=== PATIENT | female | born 1990 | race Hispanic/Latino ===

== ENCOUNTER 2017-07-25 20:30 | Inpatient (IN) | payer OTHER ==
[2017-07-25] MEDS ORDERED: LACTATED RINGERS 1,000 ML IV ONE (22:05)
[2017-07-25 23:45] LABS: Bilirubin,Urine NEG (Negative); Blood,Urine MOD (Negative); Color,Urine Yellow (Yellow); Protein,Urine <15 mg/dL mg/dL (Negative); Urobilinogen,Urine < 2.0 mg/dL (<2.0)
--- NOTE | 2017-07-25 23:49 | History and Physical Report ---
History of Present Illness Date of examination: 07/26/17 Chief complaint: Uterine contractions start 4PM History of present illness: The patient is a 27yo at 29 5/7 weeks that presents in labor. Painful contractions Q3-4min. She denies LOF, VB and reports contractions since 4pm. She states she didn't come in earlier because she was at work. She reports good movement. She reports losing her mucus plug. Past History Past Medical History: no pertinent history, other (heart murmur) Past Surgical History: no surgical history - Obstetrical History Expected Date of Delivery: 10/06/17 Actual Gestation: 29 Week(s) 5 Day(s) : 4 Medications and Allergies Allergies Allergy/AdvReac Type Severity Reaction Status Date / Time No Known Allergies Allergy Verified 04/26/14 15:47 Home Medications Medication Instructions Recorded Confirmed Last Taken Type Pnv,Calcium 72/Iron/Folic Acid 1 tab PO DAILY 11/10/15 11/10/15 11/09/15 14:30 History [Pnv Plus Multivit Tab] 1 - Vital Signs Vital signs: Vital Signs Temp Pulse Resp BP 98.3 F 78 18 116/63 07/25/17 20:57 07/25/17 20:57 07/25/17 20:57 07/25/17 20:57 Temp Pulse Resp BP Pulse Ox 98.3 F 74 18 116/63 99 07/25/17 20:57 07/25/17 21:33 07/25/17 20:57 07/25/17 20:59 07/25/17 21:33 - Physical Exam Abdomen: Positive: normal appearance, soft Genitourinary (Female): Positive: normal external genitalia Extremities: Positive: normal - Obstetrical FHR: auscultation normal Uterine Contraction Monitor Mode: External Cervical Dilatation: 4 Cervical Effacement Percentage: 50 station: -4 Uterine Contraction Pattern: Regular (Vertex - sutures palpated on cervix exam.) Results Abnormal lab results 07/25/17 Range/Units 23:20 Urine WBC (Auto) 8.0 H (0.0-6.0) /HPF All other labs normal. Assessment and Plan - Patient Problems (1) labor in third trimester Current Visit: Yes Status: Acute Qualifiers: Fetus number: single or unspecified fetus Plan to address problem: 1. Tocolysis - Terbutaline 0.25mg IM x 1 2. lung maturity: Betamethasone 12mg IM x 2 doses 3. Start ampicillin for GBS prophylaxis. Collect GBS culture 4. Continuous monitoring 5. Neuroprotection: Magnesium sulfate, 4G load dose then 2G per hour x 12hrs 6. Bedrest 7. US for weight 8. Neonatology consult. 9. Routine labs 10. fibronectin - positive
[2017-07-25] MEDS ORDERED: BRETHINE SUB-Q ONE (23:57)
[2017-07-26] MEDS ORDERED: LACTATED RINGERS 500 ML IV ONE (00:27)
[2017-07-26] MEDS: CELESTONE SOLUSPAN IM SCH (00:35)
[2017-07-26] MEDS: LACTATED RINGERS 1,000 ML IV SCH ×2 (00:43→14:18)
[2017-07-26] MEDS ORDERED: MAGNESIUM SULFATE 4GM/100ML 4 GM/100 ML BAG IV ONE (00:46)
[2017-07-26] MEDS ORDERED: POLYCILLIN/NS 2 GM/100 ML 2 GM/100 ML BAG IV ONE (00:52)
[2017-07-26] MEDS ORDERED: MAGNESIUM SULFATE 40GM/1000ML 40 GM/1,000 ML BAG IV SCH (01:00)
[2017-07-26 01:12] LABS: Basophils % (Auto) 0.3 % (0.0-1.8); Eosinophils % (Auto) 0.1 % (0.0-4.3); Hematocrit 35.3 % (30.3-42.9); Hemoglobin 11.9 gm/dl (10.1-14.3); Lymphocytes # (Auto) 2.5 K/mm3 (1.2-5.4); Lymphocytes % (Auto) 23.2 % (13.4-35.0); Mean Corpuscular HGB Conc 34 % (30-34); Mean Corpuscular Hemoglobin 30 pg (28-32); Mean Corpuscular Volume 90 fl (79-97); Monocytes # (Auto) 0.6 K/mm3 (0.0-0.8); Monocytes % (Auto) 5.2 % (0.0-7.3); Platelet Count 213 K/mm3 (140-440); Red Blood Count 3.91 M/mm3 (3.65-5.03); Red Cell Distribution Width 13.9 % (13.2-15.2)
[2017-07-26 01:22] LABS: Amphetamine Screen,Urine PRESUMPTIVE NEGATIVE; Benzodiazepines Screen,Urine PRESUMPTIVE NEGATIVE; Cocaine Screen,Urine PRESUMPTIVE NEGATIVE; Methadone Screen,Urine PRESUMPTIVE NEGATIVE; Opiate Screen,Urine PRESUMPTIVE NEGATIVE
[2017-07-26 01:36] LABS: Cannabinoid Screen,Urine PRESUMPTIVE POSITIVE
[2017-07-26] MEDS ORDERED: AMBIEN PO ONE (03:37)
[2017-07-26] MEDS: AMPICILLIN/NS 1 GM/50 ML 1 GM/50 ML BAG IV SCH ×2 (06:29→22:58)
[2017-07-26] MEDS ORDERED: ZOFRAN IV PRN (08:21)
--- NOTE | 2017-07-26 10:16 | Progress Note ---
Assessment and Plan - Patient Problems (1) labor in third trimester Onset Date: 07/26/17 Current Visit: Yes Status: Acute Qualifiers: Fetus number: single or unspecified fetus (2) 35 weeks gestation of Onset Date: 07/26/17 Current Visit: Yes Status: Acute Plan to address problem: A: IUP @ 35 weeks - currently stable on IV Magnesium sulfate 2gm/hr, Betamethasone and IV Ampicillin Labor - resolved Limited care +FFN +UDS - THC P: Continue present management Obtain [facility] consultation Subjective - Subjective Date of service: 07/26/17 Principal diagnosis: IUP @ 29 6/7 weeks by dates and 35 weeks by u/s; PTL Interval history: The patient is a 27yo at 29 6/7 weeks that presented in labor with painful contractions Q3-4min - now improved with IV Magnesium sulfate. She has received the first dose of Betamethasone and also on IV Ampicillin. She denies ROM or vaginal bleeding. She reports good movement. Patient reports: movement normal, contractions (improved), no new complaints, no loss of fluid, no vaginal bleeding Objective - Vital Signs Vital Signs: Vital Signs - 12hr 07/26/17 07/26/17 07/26/17 00:34 00:48 00:52 Temperature 97.9 F Pulse Rate 69 86 86 Respiratory 20 Rate Blood Pressure 130/61 Blood Pressure 130/61 [Left] O2 Sat by Pulse 93 Oximetry 07/26/17 07/26/17 07/26/17 01:04 01:05 01:09 Temperature Pulse Rate 89 95 H Respiratory Rate Blood Pressure Blood Pressure [Left] O2 Sat by Pulse 97 83 L 97 Oximetry 07/26/17 07/26/17 07/26/17 01:14 01:19 01:24 Temperature Pulse Rate 91 H 88 94 H Respiratory Rate Blood Pressure Blood Pressure [Left] O2 Sat by Pulse 97 98 97 Oximetry 07/26/17 07/26/17 07/26/17 01:29 01:34 01:39 Temperature Pulse Rate 84 85 87 Respiratory Rate Blood Pressure Blood Pressure [Left] O2 Sat by Pulse 96 98 99 Oximetry 07/26/17 07/26/17 07/26/17 01:44 01:49 01:54 Temperature Pulse Rate 89 92 H 87 Respiratory Rate Blood Pressure Blood Pressure [Left] O2 Sat by Pulse 98 98 97 Oximetry 07/26/17 07/26/17 07/26/17 01:59 02:04 02:09 Temperature Pulse Rate 81 89 94 H Respiratory Rate Blood Pressure Blood Pressure [Left] O2 Sat by Pulse 98 97 97 Oximetry 07/26/17 07/26/17 07/26/17 02:15 02:20 02:25 Temperature Pulse Rate 92 H 87 93 H Respiratory Rate Blood Pressure Blood Pressure [Left] O2 Sat by Pulse 97 97 97 Oximetry 07/26/17 07/26/17 07/26/17 02:30 02:35 02:40 Temperature Pulse Rate 86 91 H 94 H Respiratory Rate Blood Pressure Blood Pressure [Left] O2 Sat by Pulse 97 98 97 Oximetry 07/26/17 07/26/17 07/26/17 02:45 02:50 02:55 Temperature Pulse Rate 90 84 86 Respiratory Rate Blood Pressure Blood Pressure [Left] O2 Sat by Pulse 97 97 97 Oximetry 07/26/17 07/26/17 07/26/17 03:00 03:05 03:09 Temperature Pulse Rate 85 85 89 Respiratory Rate Blood Pressure 108/59 Blood Pressure [Left] O2 Sat by Pulse 97 98 Oximetry 07/26/17 07/26/17 07/26/17 03:10 03:15 03:20 Temperature Pulse Rate 103 H 85 90 Respiratory Rate Blood Pressure Blood Pressure [Left] O2 Sat by Pulse 98 98 98 Oximetry 07/26/17 07/26/17 07/26/17 03:25 03:30 03:32 Temperature Pulse Rate 90 107 H 103 H Respiratory Rate Blood Pressure 141/68 Blood Pressure [Left] O2 Sat by Pulse 98 98 Oximetry 07/26/17 07/26/17 07/26/17 03:35 04:41 04:42 Temperature Pulse Rate 102 H 90 90 Respiratory Rate Blood Pressure 101/55 Blood Pressure [Left] O2 Sat by Pulse 98 97 Oximetry 07/26/17 07/26/17 07/26/17 04:47 04:52 04:56 Temperature Pulse Rate 85 85 84 Respiratory Rate Blood Pressure Blood Pressure [Left] O2 Sat by Pulse 97 97 91 Oximetry 07/26/17 07/26/17 07/26/17 04:57 05:02 05:08 Temperature Pulse Rate 84 73 84 Respiratory Rate Blood Pressure Blood Pressure [Left] O2 Sat by Pulse 97 97 97 Oximetry 07/26/17 07/26/17 07/26/17 05:09 05:13 05:18 Temperature Pulse Rate 84 93 H 78 Respiratory Rate Blood Pressure 96/54 Blood Pressure [Left] O2 Sat by Pulse 98 97 Oximetry 07/26/17 07/26/17 07/26/17 05:23 05:28 05:33 Temperature Pulse Rate 77 76 81 Respiratory Rate Blood Pressure Blood Pressure [Left] O2 Sat by Pulse 97 96 97 Oximetry 07/26/17 07/26/17 07/26/17 05:38 05:43 05:48 Temperature Pulse Rate 79 76 70 Respiratory Rate Blood Pressure Blood Pressure [Left] O2 Sat by Pulse 96 96 97 Oximetry 07/26/17 07/26/17 07/26/17 05:53 05:58 06:03 Temperature Pulse Rate 76 74 78 Respiratory Rate Blood Pressure Blood Pressure [Left] O2 Sat by Pulse 97 96 96 Oximetry 07/26/17 07/26/17 07/26/17 06:08 06:09 06:13 Temperature Pulse Rate 69 85 77 Respiratory Rate Blood Pressure 89/47 Blood Pressure [Left] O2 Sat by Pulse 97 97 Oximetry 07/26/17 07/26/17 07/26/17 06:18 06:23 06:28 Temperature Pulse Rate 75 74 77 Respiratory Rate Blood Pressure Blood Pressure [Left] O2 Sat by Pulse 96 96 96 Oximetry 07/26/17 07/26/17 07/26/17 06:33 06:38 06:43 Temperature Pulse Rate 75 71 78 Respiratory Rate Blood Pressure 106/52 Blood Pressure [Left] O2 Sat by Pulse 96 96 99 Oximetry 07/26/17 07/26/17 07/26/17 06:48 06:53 06:58 Temperature Pulse Rate 82 80 90 Respiratory Rate Blood Pressure Blood Pressure [Left] O2 Sat by Pulse 97 96 95 Oximetry 07/26/17 07/26/17 07/26/17 07:03 07:08 07:09 Temperature 98.0 F Pulse Rate 79 81 81 Respiratory 18 Rate Blood Pressure 121/69 Blood Pressure [Left] O2 Sat by Pulse 96 97 Oximetry 07/26/17 07/26/17 07/26/17 07:13 07:18 07:23 Temperature Pulse Rate 78 82 82 Respiratory Rate Blood Pressure Blood Pressure [Left] O2 Sat by Pulse 97 97 98 Oximetry 06/0407/26/17 07/26/17 07:28 07:33 07:38 Temperature Pulse Rate 91 H 82 81 Respiratory Rate Blood Pressure Blood Pressure [Left] O2 Sat by Pulse 97 97 97 Oximetry 07/26/17 07/26/17 07/26/17 07:43 07:48 07:53 Temperature Pulse Rate 83 89 75 Respiratory Rate Blood Pressure Blood Pressure [Left] O2 Sat by Pulse 97 97 98 Oximetry 07/26/17 07/26/17 07/26/17 07:58 08:03 08:08 Temperature Pulse Rate 80 76 80 Respiratory Rate Blood Pressure Blood Pressure [Left] O2 Sat by Pulse 97 97 97 Oximetry 07/26/17 07/26/17 07/26/17 08:09 08:13 08:18 Temperature Pulse Rate 82 85 78 Respiratory Rate Blood Pressure 107/56 Blood Pressure [Left] O2 Sat by Pulse 97 98 Oximetry 07/26/17 07/26/17 07/26/17 08:23 08:28 08:33 Temperature Pulse Rate 82 85 94 H Respiratory Rate Blood Pressure Blood Pressure [Left] O2 Sat by Pulse 98 97 97 Oximetry 07/26/17 07/26/17 07/26/17 08:38 08:43 08:48 Temperature Pulse Rate 78 85 80 Respiratory Rate Blood Pressure Blood Pressure [Left] O2 Sat by Pulse 98 98 99 Oximetry 07/26/17 07/26/17 07/26/17 08:53 08:58 09:03 Temperature Pulse Rate 85 83 78 Respiratory Rate Blood Pressure Blood Pressure [Left] O2 Sat by Pulse 98 99 97 Oximetry 07/26/17 07/26/17 07/26/17 09:08 09:09 09:13 Temperature Pulse Rate 86 82 76 Respiratory Rate Blood Pressure 121/68 Blood Pressure [Left] O2 Sat by Pulse 97 98 Oximetry 07/26/17 07/26/17 07/26/17 09:18 09:23 09:28 Temperature Pulse Rate 74 72 71 Respiratory Rate Blood Pressure Blood Pressure [Left] O2 Sat by Pulse 98 97 96 Oximetry 07/26/17 07/26/17 07/26/17 09:33 09:38 09:43 Temperature Pulse Rate 69 74 73 Respiratory Rate Blood Pressure Blood Pressure [Left] O2 Sat by Pulse 97 96 96 Oximetry 07/26/17 07/26/17 07/26/17 09:48 09:53 09:58 Temperature Pulse Rate 74 92 H Respiratory Rate Blood Pressure Blood Pressure [Left] O2 Sat by Pulse 97 97 89 Oximetry 07/26/17 07/26/17 07/26/17 09:59 10:03 10:08 Temperature Pulse Rate 51 L 89 77 Respiratory Rate Blood Pressure Blood Pressure [Left] O2 Sat by Pulse 91 98 97 Oximetry 07/26/17 07/26/17 07/26/17 10:09 10:13 10:18 Temperature Pulse Rate 77 77 76 Respiratory Rate Blood Pressure 115/61 Blood Pressure [Left] O2 Sat by Pulse 97 96 Oximetry - Exam Abdomen: Present: normal appearance, soft Uterus: Present: normal FHR: category 1 Uterine Contraction Monitor Mode: External Uterine Contraction Pattern: Irregular Uterine Tone Measurement Phase: Contraction Uterine Contraction Intensity: Mild - Labs Labs: Abnormal Labs 07/25/17 07/26/17 07/26/17 23:20 00:33 08:42 Seg Neutrophils % 71.2 H Magnesium 5.20 H Urine WBC (Auto) 8.0 H Laboratory Results - last 24 hr 07/25/17 07/25/17 07/26/17 21:47 23:20 00:30 WBC RBC Hgb Hct MCV MCH MCHC RDW Plt Count Lymph % (Auto) Emmet % (Auto) Eos % (Auto) Baso % (Auto) Lymph # Emmet # Eos # Baso # Seg Neutrophils % Seg Neutrophils # Magnesium Urine Color Yellow Urine Turbidity Clear Urine pH 6.0 Ur Specific Lawler 1.005 Urine Protein <15 mg/dl Urine Glucose (UA) Neg Urine Ketones 20 Urine Blood Mod Urine Nitrite Neg Urine Bilirubin Neg Urine Urobilinogen < 2.0 Ur Leukocyte Esterase Sm Urine WBC (Auto) 8.0 H Urine RBC (Auto) 2.0 U Epithel Cells (Auto) 1.0 Urine Opiates Screen Presumptive negative Urine Methadone Screen Presumptive negative Ur Barbiturates Screen Presumptive negative Ur Phencyclidine Scrn Presumptive negative Ur Amphetamines Screen Presumptive negative U Benzodiazepines Scrn Presumptive negative Urine Cocaine Screen Presumptive negative U Marijuana (THC) Screen Presumptive positive Drugs of Abuse Note Disclamer HIV 1&2 Antibody Rapid HIV P24 Antigen Fibronectin Positive Blood Type Antibody Screen 07/26/17 07/26/17 07/26/17 00:33 00:33 00:33 WBC 10.6 RBC 3.91 Hgb 11.9 Hct 35.3 MCV 90 MCH 30 MCHC 34 RDW 13.9 Plt Count 213 Lymph % (Auto) 23.2 Emmet % (Auto) 5.2 Eos % (Auto) 0.1 Baso % (Auto) 0.3 Lymph # 2.5 Emmet # 0.6 Eos # 0.0 Baso # 0.0 Seg Neutrophils % 71.2 H Seg Neutrophils # 7.5 Magnesium Urine Color Urine Turbidity Urine pH Ur Specific Lawler Urine Protein Urine Glucose (UA) Urine Ketones Urine Blood Urine Nitrite Urine Bilirubin Urine Urobilinogen Ur Leukocyte Esterase Urine WBC (Auto) Urine RBC (Auto) U Epithel Cells (Auto) Urine Opiates Screen Urine Methadone Screen Ur Barbiturates Screen Ur Phencyclidine Scrn Ur Amphetamines Screen U Benzodiazepines Scrn Urine Cocaine Screen U Marijuana (THC) Screen Drugs of Abuse Note HIV 1&2 Antibody Rapid Non react HIV P24 Antigen Non react Fibronectin Blood Type O POSITIVE Antibody Screen Negative 07/26/17 08:42 WBC RBC Hgb Hct MCV MCH MCHC RDW Plt Count Lymph % (Auto) Emmet % (Auto) Eos % (Auto) Baso % (Auto) Lymph # Emmet # Eos # Baso # Seg Neutrophils % Seg Neutrophils # Magnesium 5.20 H Urine Color Urine Turbidity Urine pH Ur Specific Law[place] Urine Protein Urine Glucose (UA) Urine Ketones Urine Blood Urine Nitrite Urine Bilirubin Urine Urobilinogen Ur Leukocyte Esterase Urine WBC (Auto) Urine RBC (Auto) U Epithel Cells (Auto) Urine Opiates Screen Urine Methadone Screen Ur Barbiturates Screen Ur Phencyclidine Scrn Ur Amphetamines Screen U Benzodiazepines Scrn Urine Cocaine Screen U Marijuana (THC) Screen Drugs of Abuse Note HIV 1&2 Antibody Rapid HIV P24 Antigen Fibronectin Blood Type Antibody Screen
--- NOTE | 2017-07-26 13:41 | Consultation ---
History of Present Illness Reason for consult: other (The patient is a 27yo at 35.0 weeks per US that presented in labor. Patient reported irregular menses and unsure of LMP Upon admission Painful contractions Q3-4min. She denies LOF, VB and ABD pain She reports good movement. She reports contractions are now Q 30-45 mins instead of Q 10 min BMZ and MgSO4 in progress ) Past History Past Medical History: no pertinent history, other (heart murmur) Past Surgical History: no surgical history - Obstetrical History : 4 Medications and Allergies Allergies Allergy/AdvReac Type Severity Reaction Status Date / Time No Known Allergies Allergy Verified 04/26/14 15:47 Home Medications Medication Instructions Recorded Confirmed Last Taken Type Pnv,Calcium 72/Iron/Folic Acid 1 tab PO DAILY 11/10/15 07/26/17 07/25/17 08:00 History [Pnv Plus Multivit Tab] Active Meds: Active Medications Betamethasone Acet/Betameth SodPhos (Celestone Soluspan) 12 mg IM Q24H LOBITO Stop: 07/27/17 00:06 Last Admin: 07/26/17 00:35 Dose: 12 mg Lactated Ringer's (Lactated Ringers) 1,000 mls @ 125 mls/hr IV DIRECT LOBITO Last Admin: 07/26/17 00:43 Dose: 125 mls/hr Magnesium Sulfate (Magnesium Sulfate 40gm/1000ml) 40 gm in 1,000 mls @ 50 mls/ hr IV DIRECT LOBITO Last Admin: 07/26/17 01:18 Dose: 2 gm/hr, 50 mls/hr Ampicillin Sodium (Ampicillin/Ns 1 Gm/50 Ml) 1 gm in 50 mls @ 100 mls/hr IV Q4HR LOBITO; Protocol Last Admin: 07/26/17 06:29 Dose: 100 mls/hr Ondansetron HCl (Zofran) 4 mg IV Q8H PRN PRN Reason: Nausea And Vomiting Last Admin: 07/26/17 08:55 Dose: 4 mg Review of Systems Constitutional: no fever Eyes: deferred Ears, nose, mouth and throat: deferred Cardiovascular: no rapid/irregular heart beat Respiratory: no shortness of breath Gastrointestinal: no abdominal pain Genitourinary: pelvic pain, contractions (irregular contractions ), no vaginal bleeding, no vaginal discharge, no leakage of fluid - Vital Signs Vital signs: Vital Signs Temp Pulse Resp BP 98.3 F 78 18 116/63 07/25/17 20:57 07/25/17 20:57 07/25/17 20:57 07/25/17 20:57 Temp Pulse Resp BP Pulse Ox 98.0 F 76 18 111/65 97 07/26/17 07:08 07/26/17 13:38 07/26/17 07:08 07/26/17 13:09 07/26/17 13:38 - Physical Exam Breasts: Positive: deferred Cardiovascular: Regular rate Lungs: Positive: Normal air movement Abdomen: Negative: tenderness Uterus: Negative: tender Deep Tendon Reflex Grade: Normal +2 - Obstetrical FHR: category 1 Uterine Contraction Monitor Mode: External Uterine Contraction Pattern: Irregular Uterine Contraction Intensity: Mild Results Result Diagrams: 07/26/17 00:33 Abnormal lab results 07/25/17 07/26/17 07/26/17 Range/Units 23:20 00:33 08:42 Seg Neutrophils % 71.2 H (40.0-70.0) % Magnesium 5.20 H (1.7-2.3) mg/dL Urine WBC (Auto) 8.0 H (0.0-6.0) /HPF All other labs normal. Ultrasound: report reviewed (07/26/17 [facility] US SIUP 35.0 weeks with ARNULFO 08/30/17 + FHT of 143 YULISA of 9.8 VTX EFW 2681 gm BPP / ) Assessment and Plan A) IUP of 35.0 weeks per [facility] US Reported Irr menses history PTL improving while of MgSO4 Irregular contraction Advanced dilation of 4 cm per [facility] SVE Limited PNC Positive FFN Positive UDS Reassuring EFW at 60% Reassuring BPP MgSO4 in progress BMZ in progress ABX per protocol P) 1. Continue in patient admission 2. Complete ABX BMZ and MgSO per protocpl 3. Document normal HgbA1C assessment 4. NICU consult With concern /question notify country director APA provider _ Dr. Pillai
--- NOTE | 2017-07-26 14:03 | Ultrasound Report ---
FINAL REPORT EXAM: US OB FOLLOW UP HISTORY: labor COMPARISON: Biophysical profile score from the same date. TECHNIQUE: Several real-time grayscale and color Doppler images were obtained. FINDINGS: Single live IUP. Estimated gestational age 35 weeks 0 days. Estimated delivery date July 31, 2017. Estimated weight 2681 grams. heart rate 143 beats per minute. BPD 8.3 centimeters 33 weeks 1 day. Head circumference 31.4 centimeters 35 weeks 1 day. Abdominal circumference 31.8 centimeters 35 weeks 4 days. Femoral length 7.1 centimeters 36 weeks 2 days. YULISA within normal limits 9.8 centimeters. position cephalic. Placenta location left lateral. No placenta previa. Anatomic survey not performed. IMPRESSION: Single live IUP. Estimated gestational age 35 weeks 0 days. Estimated delivery date July 31, 2017. Limited anatomic survey performed. No gross or placental abnormality demonstrated.
--- NOTE | 2017-07-26 14:03 | Ultrasound Report ---
FINAL REPORT EXAM: US OB BPP WO NON-STRESS HISTORY: PTL COMPARISON: None available. TECHNIQUE: Several real-time grayscale and color Doppler images were obtained. FINDINGS: Normal breathing movements, movements, posterior tone and qualitative amniotic fluid volume. heart rate 143 beats per minute. IMPRESSION: Biophysical profile score 8/8.
[2017-07-27] MEDS: CELESTONE SOLUSPAN IM SCH (00:25)
[2017-07-27] MEDS ORDERED: AMBIEN PO PRN (01:32)
[2017-07-27] MEDS ORDERED: STADOL IV ONE (06:48)
--- NOTE | 2017-07-27 07:47 | Progress Note ---
Assessment and Plan A: 27-year-old at ~ 35 wks with PTL -Cat 1 tracing -Advanced cervical dilation at ~ 6 cm P: -Epidural now -Proceed with delivery -NICU aware - Patient Problems (1) 35 weeks gestation of Onset Date: 07/26/17 Current Visit: Yes Status: Acute Subjective - Subjective Date of service: 07/27/17 Principal diagnosis: IUP @ 29 6/7 weeks by dates and ~ 35 weeks by u/s; PTL Interval history: Patient seen and examined, stable. Having painful contractions requiring Stadol. On exam, she is 6 cm dilated. She is status post Celestone course and magnesium has been discontinued Patient reports: movement normal, contractions (improved), no new complaints, no loss of fluid, no vaginal bleeding Objective - Vital Signs Vital Signs: Vital Signs - 12hr 07/26/17 07/26/17 07/26/17 19:49 19:54 19:59 Temperature Pulse Rate 84 82 80 Respiratory Rate Blood Pressure Blood Pressure [Left] O2 Sat by Pulse 97 97 97 Oximetry 07/26/17 07/26/17 07/26/17 20:04 20:09 20:14 Temperature Pulse Rate 79 85 84 Respiratory Rate Blood Pressure Blood Pressure [Left] O2 Sat by Pulse 97 97 97 Oximetry 07/26/17 07/26/17 07/26/17 20:15 20:19 20:24 Temperature 98.3 F Pulse Rate 82 84 80 Respiratory 18 Rate Blood Pressure Blood Pressure [Left] O2 Sat by Pulse 97 97 Oximetry 07/26/17 07/26/17 07/26/17 20:29 20:41 20:47 Temperature Pulse Rate 84 86 82 Respiratory Rate Blood Pressure 128/73 118/58 Blood Pressure [Left] O2 Sat by Pulse 97 Oximetry 07/26/17 07/26/17 07/26/17 20:52 20:59 21:04 Temperature Pulse Rate 84 87 83 Respiratory Rate Blood Pressure Blood Pressure [Left] O2 Sat by Pulse 99 99 97 Oximetry 07/26/17 07/26/17 07/26/17 21:09 21:14 21:19 Temperature Pulse Rate 83 85 79 Respiratory Rate Blood Pressure Blood Pressure [Left] O2 Sat by Pulse 97 96 97 Oximetry 07/26/17 07/26/17 07/26/17 21:24 21:29 21:34 Temperature Pulse Rate 82 83 80 Respiratory Rate Blood Pressure Blood Pressure [Left] O2 Sat by Pulse 97 97 99 Oximetry 07/26/17 07/26/17 07/26/17 21:39 21:44 21:52 Temperature Pulse Rate 76 81 79 Respiratory Rate Blood Pressure 116/60 Blood Pressure [Left] O2 Sat by Pulse 99 99 Oximetry 07/26/17 07/26/17 07/26/17 21:53 21:58 22:03 Temperature Pulse Rate 77 76 80 Respiratory Rate Blood Pressure Blood Pressure [Left] O2 Sat by Pulse 98 97 97 Oximetry 07/26/17 07/26/17 07/26/17 22:08 22:13 22:18 Temperature Pulse Rate 78 77 74 Respiratory Rate Blood Pressure Blood Pressure [Left] O2 Sat by Pulse 98 97 97 Oximetry 07/26/17 07/26/17 07/26/17 22:50 22:52 23:16 Temperature 98.2 F Pulse Rate 70 70 87 Respiratory 18 Rate Blood Pressure 104/56 Blood Pressure 104/56 [Left] O2 Sat by Pulse 97 97 Oximetry 07/26/17 07/26/17 07/26/17 23:21 23:26 23:31 Temperature Pulse Rate 75 70 74 Respiratory Rate Blood Pressure Blood Pressure [Left] O2 Sat by Pulse 97 97 97 Oximetry 07/26/17 07/26/17 07/26/17 23:36 23:41 23:46 Temperature Pulse Rate 75 82 74 Respiratory Rate Blood Pressure Blood Pressure [Left] O2 Sat by Pulse 97 97 97 Oximetry 07/26/17 07/26/17 07/26/17 23:51 23:52 23:56 Temperature Pulse Rate 71 78 68 Respiratory Rate Blood Pressure 97/49 Blood Pressure [Left] O2 Sat by Pulse 97 97 Oximetry 07/27/17 07/27/17 07/27/17 00:01 00:06 00:11 Temperature Pulse Rate 68 65 69 Respiratory Rate Blood Pressure Blood Pressure [Left] O2 Sat by Pulse 97 97 97 Oximetry 07/27/17 07/27/17 07/27/17 00:16 00:21 00:26 Temperature Pulse Rate 66 67 66 Respiratory Rate Blood Pressure Blood Pressure [Left] O2 Sat by Pulse 97 97 98 Oximetry 07/27/17 07/27/17 07/27/17 00:31 00:36 00:41 Temperature Pulse Rate 74 79 81 Respiratory Rate Blood Pressure 92/53 Blood Pressure [Left] O2 Sat by Pulse 96 96 96 Oximetry 07/27/17 07/27/17 07/27/17 00:46 00:51 00:52 Temperature Pulse Rate 78 79 78 Respiratory Rate Blood Pressure 98/56 Blood Pressure [Left] O2 Sat by Pulse 96 98 Oximetry 07/27/17 07/27/17 07/27/17 00:56 01:01 01:06 Temperature Pulse Rate 76 68 73 Respiratory Rate Blood Pressure Blood Pressure [Left] O2 Sat by Pulse 97 98 98 Oximetry 07/27/17 07/27/17 07/27/17 01:13 01:18 01:23 Temperature Pulse Rate 75 73 77 Respiratory Rate Blood Pressure Blood Pressure [Left] O2 Sat by Pulse 96 98 98 Oximetry 07/27/17 07/27/17 07/27/17 01:27 01:28 01:33 Temperature Pulse Rate 54 L 69 66 Respiratory Rate Blood Pressure Blood Pressure [Left] O2 Sat by Pulse 91 98 98 Oximetry 07/27/17 07/27/17 07/27/17 01:38 01:43 01:48 Temperature Pulse Rate 71 76 72 Respiratory Rate Blood Pressure Blood Pressure [Left] O2 Sat by Pulse 98 98 98 Oximetry 07/27/17 07/27/17 07/27/17 01:52 01:53 01:58 Temperature Pulse Rate 71 71 70 Respiratory Rate Blood Pressure 99/57 Blood Pressure [Left] O2 Sat by Pulse 97 98 Oximetry 07/27/17 07/27/17 07/27/17 02:03 02:08 02:13 Temperature Pulse Rate 76 68 74 Respiratory Rate Blood Pressure Blood Pressure [Left] O2 Sat by Pulse 98 97 97 Oximetry 07/27/17 07/27/17 07/27/17 02:18 02:23 02:28 Temperature Pulse Rate 82 71 84 Respiratory Rate Blood Pressure Blood Pressure [Left] O2 Sat by Pulse 98 97 98 Oximetry 07/27/17 07/27/17 07/27/17 02:33 02:38 02:43 Temperature Pulse Rate 71 75 64 Respiratory Rate Blood Pressure Blood Pressure [Left] O2 Sat by Pulse 98 97 98 Oximetry 07/27/17 07/27/17 07/27/17 02:48 02:52 02:53 Temperature Pulse Rate 74 72 75 Respiratory Rate Blood Pressure 106/67 Blood Pressure [Left] O2 Sat by Pulse 97 97 Oximetry 07/27/17 07/27/17 07/27/17 02:58 03:03 03:08 Temperature Pulse Rate 69 73 71 Respiratory Rate Blood Pressure Blood Pressure [Left] O2 Sat by Pulse 99 98 97 Oximetry 07/27/17 07/27/17 07/27/17 03:13 03:18 03:28 Temperature Pulse Rate 71 85 87 Respiratory Rate Blood Pressure 115/58 Blood Pressure [Left] O2 Sat by Pulse 99 98 97 Oximetry 07/27/17 07/27/17 07/27/17 03:33 03:38 03:43 Temperature Pulse Rate 71 80 76 Respiratory Rate Blood Pressure Blood Pressure [Left] O2 Sat by Pulse 97 97 96 Oximetry 07/27/17 07/27/17 07/27/17 03:48 03:53 03:58 Temperature Pulse Rate 71 89 88 Respiratory Rate Blood Pressure Blood Pressure [Left] O2 Sat by Pulse 98 96 95 Oximetry 07/27/17 07/27/17 07/27/17 04:03 04:08 04:13 Temperature Pulse Rate 90 60 77 Respiratory Rate Blood Pressure 90/52 Blood Pressure [Left] O2 Sat by Pulse 97 97 98 Oximetry 07/27/17 07/27/17 07/27/17 04:18 04:20 04:23 Temperature Pulse Rate 70 90 99 H Respiratory Rate Blood Pressure Blood Pressure 90/52 [Left] O2 Sat by Pulse 97 99 Oximetry 07/27/17 07/27/17 07/27/17 04:28 04:33 04:38 Temperature Pulse Rate 71 79 73 Respiratory Rate Blood Pressure 111/56 Blood Pressure [Left] O2 Sat by Pulse 97 98 97 Oximetry 07/27/17 07/27/17 07/27/17 04:43 04:48 04:53 Temperature Pulse Rate 69 70 102 H Respiratory Rate Blood Pressure Blood Pressure [Left] O2 Sat by Pulse 98 97 96 Oximetry 07/27/17 07/27/17 07/27/17 04:58 05:03 05:08 Temperature Pulse Rate 72 76 76 Respiratory Rate Blood Pressure 80/46 Blood Pressure [Left] O2 Sat by Pulse 97 97 96 Oximetry 07/27/17 07/27/17 07/27/17 05:13 05:18 05:23 Temperature Pulse Rate 70 73 69 Respiratory Rate Blood Pressure Blood Pressure [Left] O2 Sat by Pulse 97 96 97 Oximetry 07/27/17 07/27/17 07/27/17 05:28 05:33 05:38 Temperature Pulse Rate 72 99 H 71 Respiratory Rate Blood Pressure Blood Pressure [Left] O2 Sat by Pulse 96 99 97 Oximetry 07/27/17 07/27/17 07/27/17 05:43 05:46 05:48 Temperature Pulse Rate 70 92 H 74 Respiratory Rate Blood Pressure Blood Pressure [Left] O2 Sat by Pulse 96 94 97 Oximetry 07/27/17 07/27/17 07/27/17 05:53 05:58 06:03 Temperature Pulse Rate 70 69 70 Respiratory Rate Blood Pressure Blood Pressure [Left] O2 Sat by Pulse 97 97 97 Oximetry 07/27/17 07/27/17 07/27/17 06:08 06:09 06:13 Temperature Pulse Rate 87 76 100 H Respiratory Rate Blood Pressure 106/58 Blood Pressure [Left] O2 Sat by Pulse 97 99 Oximetry 07/27/17 07/27/17 07/27/17 06:23 06:25 06:30 Temperature Pulse Rate 90 85 82 Respiratory Rate Blood Pressure 106/61 Blood Pressure [Left] O2 Sat by Pulse 97 96 Oximetry 07/27/17 07/27/17 07/27/17 06:33 06:35 06:40 Temperature Pulse Rate 86 86 86 Respiratory Rate Blood Pressure 100/57 Blood Pressure [Left] O2 Sat by Pulse 99 98 Oximetry 07/27/17 07/27/17 07/27/17 06:43 06:45 06:50 Temperature Pulse Rate 100 H 92 H 83 Respiratory Rate Blood Pressure Blood Pressure [Left] O2 Sat by Pulse 90 99 98 Oximetry 07/27/17 07/27/17 07/27/17 06:52 06:54 06:55 Temperature Pulse Rate 95 H 78 Respiratory 20 Rate Blood Pressure Blood Pressure [Left] O2 Sat by Pulse 93 98 Oximetry 07/27/17 07/27/17 07/27/17 06:58 07:00 07:05 Temperature Pulse Rate 101 H 84 86 Respiratory Rate Blood Pressure Blood Pressure [Left] O2 Sat by Pulse 89 98 97 Oximetry 07/27/17 07/27/17 07/27/17 07:06 07:10 07:12 Temperature Pulse Rate 98 H 63 66 Respiratory Rate Blood Pressure Blood Pressure [Left] O2 Sat by Pulse 89 96 93 Oximetry 0607/27/17 07/27/17 07:15 07:20 07:25 Temperature Pulse Rate 62 93 H 73 Respiratory Rate Blood Pressure Blood Pressure [Left] O2 Sat by Pulse 95 95 93 Oximetry 07/27/17 07/27/17 07/27/17 07:26 07:31 07:34 Temperature Pulse Rate 76 95 H 82 Respiratory Rate Blood Pressure 127/56 Blood Pressure [Left] O2 Sat by Pulse 91 95 Oximetry 07/27/17 07/27/17 07:36 07:41 Temperature Pulse Rate 75 78 Respiratory Rate Blood Pressure Blood Pressure [Left] O2 Sat by Pulse 95 96 Oximetry - Exam Abdomen: Present: normal appearance, soft. Absent: distention, tenderness, guarding, rigidity FHR: category 1 Cervical Dilatation: 6 (per RN exam) - Labs Labs: Abnormal Labs 07/25/17 07/26/17 07/26/17 23:20 00:33 08:42 Seg Neutrophils % 71.2 H Magnesium 5.20 H Urine WBC (Auto) 8.0 H 07/26/17 07/27/17 19:26 03:53 Seg Neutrophils % Magnesium 5.60 H 3.70 H Urine WBC (Auto) Laboratory Results - last 24 hr 07/26/17 07/26/17 07/26/17 00:33 08:42 19:26 Magnesium 5.20 H 5.60 H RPR Nonreactive 07/27/17 03:53 Magnesium 3.70 H RPR
[2017-07-27] MEDS ORDERED: ePHEDrine SULFATE ONE (07:51)
[2017-07-27] MEDS: LACTATED RINGERS 1,000 ML IV SCH ×2 (08:35→12:03)
--- NOTE | 2017-07-27 09:30 | Event Note ---
Date: 07/27/17 Patient is now 7 cm and -3 station. She desires an epidural. Plan is augmentation of labor once epidural in place.
[2017-07-27] MEDS ORDERED: NARCAN 2 MG/2 ML IV PRN (09:49)
[2017-07-27] MEDS ORDERED: ePHEDrine SULFATE IV PRN (09:49)
--- NOTE | 2017-07-27 09:49 | Anesthesia Consultation ---
Anesthesia Consult and Med Hx Date of service: 07/27/17 - Airway Anesthetic Teeth Evaluation: Good ROM Head & Neck: Adequate Mental/Hyoid Distance: Adequate Mallampati Class: Class II Intubation Access Assessment: Probably Good - Pre-Operative Health Status ASA Pre-Surgery Classification: ASA2 Proposed Anesthetic Plan: Epidural, Spinal - Pulmonary Hx Asthma: No COPD: No Hx Pneumonia: No - Cardiovascular System Hx Hypertension: No - Central Nervous System Hx Seizures: No Hx Psychiatric Problems: No - Endocrine Hx Renal Disease: No Hx End Stage Renal Disease: No Hx Hypothyroidism: No Hx Hyperthyroidism: No - Hematic Hx Anemia: No Hx Sickle Cell Disease: No - Other Systems Hx Alcohol Use: No
[2017-07-27] MEDS ORDERED: fentaNYL-BUPIV 2 MCG/ML-0.125% 200 MCG/100 ML BAG EPIDURAL SCH (10:00)
--- NOTE | 2017-07-27 10:59 | Progress Note ---
Assessment and Plan A: No care (Positive test @ [facility] 2 weeks ago, no care this , uncertain LMP) IUP at 35 wks per US at [facility] on 07/26 Advanced dilatation 7cm Comfortable with Epidural GBS unknown Category 1 tracing AROM 10:47, thick Meconium P: Routine care Pitocin Augmentation GBS prophylaxis NICU/RT at delivery Anticiapte Subjective - Subjective Date of service: 07/27/17 Principal diagnosis: ~ 35 weeks by u/s; PTL, No prental care Patient reports: vaginal bleeding (normal bloody show), movement normal, contractions, no new complaints, no loss of fluid Objective - Vital Signs Vital Signs: Vital Signs - 12hr 07/26/17 07/26/17 07/26/17 22:50 22:52 23:16 Temperature 98.2 F Pulse Rate 70 70 87 Respiratory 18 Rate Blood Pressure 104/56 Blood Pressure 104/56 [Left] O2 Sat by Pulse 97 97 Oximetry 07/26/17 07/26/17 07/26/17 23:21 23:26 23:31 Temperature Pulse Rate 75 70 74 Respiratory Rate Blood Pressure Blood Pressure [Left] O2 Sat by Pulse 97 97 97 Oximetry 07/26/17 07/26/17 07/26/17 23:36 23:41 23:46 Temperature Pulse Rate 75 82 74 Respiratory Rate Blood Pressure Blood Pressure [Left] O2 Sat by Pulse 97 97 97 Oximetry 07/26/17 07/26/17 07/26/17 23:51 23:52 23:56 Temperature Pulse Rate 71 78 68 Respiratory Rate Blood Pressure 97/49 Blood Pressure [Left] O2 Sat by Pulse 97 97 Oximetry 07/27/17 07/27/17 07/27/17 00:01 00:06 00:11 Temperature Pulse Rate 68 65 69 Respiratory Rate Blood Pressure Blood Pressure [Left] O2 Sat by Pulse 97 97 97 Oximetry 07/27/17 07/27/17 07/27/17 00:16 00:21 00:26 Temperature Pulse Rate 66 67 66 Respiratory Rate Blood Pressure Blood Pressure [Left] O2 Sat by Pulse 97 97 98 Oximetry 07/27/17 07/27/17 07/27/17 00:31 00:36 00:41 Temperature Pulse Rate 74 79 81 Respiratory Rate Blood Pressure 92/53 Blood Pressure [Left] O2 Sat by Pulse 96 96 96 Oximetry 07/27/17 07/27/17 07/27/17 00:46 00:51 00:52 Temperature Pulse Rate 78 79 78 Respiratory Rate Blood Pressure 98/56 Blood Pressure [Left] O2 Sat by Pulse 96 98 Oximetry 07/27/17 07/27/17 07/27/17 00:56 01:01 01:06 Temperature Pulse Rate 76 68 73 Respiratory Rate Blood Pressure Blood Pressure [Left] O2 Sat by Pulse 97 98 98 Oximetry 07/27/17 07/27/17 07/27/17 01:13 01:18 01:23 Temperature Pulse Rate 75 73 77 Respiratory Rate Blood Pressure Blood Pressure [Left] O2 Sat by Pulse 96 98 98 Oximetry 07/27/17 07/27/17 07/27/17 01:27 01:28 01:33 Temperature Pulse Rate 54 L 69 66 Respiratory Rate Blood Pressure Blood Pressure [Left] O2 Sat by Pulse 91 98 98 Oximetry 07/27/17 07/27/17 07/27/17 01:38 01:43 01:48 Temperature Pulse Rate 71 76 72 Respiratory Rate Blood Pressure Blood Pressure [Left] O2 Sat by Pulse 98 98 98 Oximetry 07/27/17 07/27/17 07/27/17 01:52 01:53 01:58 Temperature Pulse Rate 71 71 70 Respiratory Rate Blood Pressure 99/57 Blood Pressure [Left] O2 Sat by Pulse 97 98 Oximetry 07/27/17 07/27/17 07/27/17 02:03 02:08 02:13 Temperature Pulse Rate 76 68 74 Respiratory Rate Blood Pressure Blood Pressure [Left] O2 Sat by Pulse 98 97 97 Oximetry 07/27/17 07/27/17 07/27/17 02:18 02:23 02:28 Temperature Pulse Rate 82 71 84 Respiratory Rate Blood Pressure Blood Pressure [Left] O2 Sat by Pulse 98 97 98 Oximetry 07/27/17 07/27/17 07/27/17 02:33 02:38 02:43 Temperature Pulse Rate 71 75 64 Respiratory Rate Blood Pressure Blood Pressure [Left] O2 Sat by Pulse 98 97 98 Oximetry 07/27/17 07/27/17 07/27/17 02:48 02:52 02:53 Temperature Pulse Rate 74 72 75 Respiratory Rate Blood Pressure 106/67 Blood Pressure [Left] O2 Sat by Pulse 97 97 Oximetry 07/27/17 07/27/1718 02:58 03:03 03:08 Temperature Pulse Rate 69 73 71 Respiratory Rate Blood Pressure Blood Pressure [Left] O2 Sat by Pulse 99 98 97 Oximetry 07/27/17 07/27/17 07/27/17 03:13 03:18 03:28 Temperature Pulse Rate 71 85 87 Respiratory Rate Blood Pressure 115/58 Blood Pressure [Left] O2 Sat by Pulse 99 98 97 Oximetry 07/27/17 07/27/17 07/27/17 03:33 03:38 03:43 Temperature Pulse Rate 71 80 76 Respiratory Rate Blood Pressure Blood Pressure [Left] O2 Sat by Pulse 97 97 96 Oximetry 07/27/17 07/27/17 07/27/17 03:48 03:53 03:58 Temperature Pulse Rate 71 89 88 Respiratory Rate Blood Pressure Blood Pressure [Left] O2 Sat by Pulse 98 96 95 Oximetry 07/27/17 07/27/17 07/27/17 04:03 04:08 04:13 Temperature Pulse Rate 90 60 77 Respiratory Rate Blood Pressure 90/52 Blood Pressure [Left] O2 Sat by Pulse 97 97 98 Oximetry 07/27/17 07/27/17 07/27/17 04:18 04:20 04:23 Temperature Pulse Rate 70 90 99 H Respiratory Rate Blood Pressure Blood Pressure 90/52 [Left] O2 Sat by Pulse 97 99 Oximetry 07/27/17 07/27/17 07/27/17 04:28 04:33 04:38 Temperature Pulse Rate 71 79 73 Respiratory Rate Blood Pressure 111/56 Blood Pressure [Left] O2 Sat by Pulse 97 98 97 Oximetry 07/27/17 07/27/17 07/27/17 04:43 04:48 04:53 Temperature Pulse Rate 69 70 102 H Respiratory Rate Blood Pressure Blood Pressure [Left] O2 Sat by Pulse 98 97 96 Oximetry 07/27/17 07/27/17 07/27/17 04:58 05:03 05:08 Temperature Pulse Rate 72 76 76 Respiratory Rate Blood Pressure 80/46 Blood Pressure [Left] O2 Sat by Pulse 97 97 96 Oximetry 07/27/17 07/27/17 07/27/17 05:13 05:18 05:23 Temperature Pulse Rate 70 73 69 Respiratory Rate Blood Pressure Blood Pressure [Left] O2 Sat by Pulse 97 96 97 Oximetry 07/27/17 07/27/17 07/27/17 05:28 05:33 05:38 Temperature Pulse Rate 72 99 H 71 Respiratory Rate Blood Pressure Blood Pressure [Left] O2 Sat by Pulse 96 99 97 Oximetry 07/27/17 07/27/17 07/27/17 05:43 05:46 05:48 Temperature Pulse Rate 70 92 H 74 Respiratory Rate Blood Pressure Blood Pressure [Left] O2 Sat by Pulse 96 94 97 Oximetry 07/27/17 07/27/17 07/27/17 05:53 05:58 06:03 Temperature Pulse Rate 70 69 70 Respiratory Rate Blood Pressure Blood Pressure [Left] O2 Sat by Pulse 97 97 97 Oximetry 07/27/17 07/27/17 07/27/17 06:08 06:09 06:13 Temperature Pulse Rate 87 76 100 H Respiratory Rate Blood Pressure 106/58 Blood Pressure [Left] O2 Sat by Pulse 97 99 Oximetry 07/27/17 07/27/17 07/27/17 06:23 06:25 06:30 Temperature Pulse Rate 90 85 82 Respiratory Rate Blood Pressure 106/61 Blood Pressure [Left] O2 Sat by Pulse 97 96 Oximetry 07/27/17 07/27/17 07/27/17 06:33 06:35 06:40 Temperature Pulse Rate 86 86 86 Respiratory Rate Blood Pressure 100/57 Blood Pressure [Left] O2 Sat by Pulse 99 98 Oximetry 07/27/17 07/27/17 07/27/17 06:43 06:45 06:50 Temperature Pulse Rate 100 H 92 H 83 Respiratory Rate Blood Pressure Blood Pressure [Left] O2 Sat by Pulse 90 99 98 Oximetry 07/27/17 07/27/17 07/27/17 06:52 06:54 06:55 Temperature Pulse Rate 95 H 78 Respiratory 20 Rate Blood Pressure Blood Pressure [Left] O2 Sat by Pulse 93 98 Oximetry 07/27/17 07/27/17 07/27/17 06:58 07:00 07:05 Temperature Pulse Rate 101 H 84 86 Respiratory Rate Blood Pressure Blood Pressure [Left] O2 Sat by Pulse 89 98 97 Oximetry 07/27/17 07/27/17 07/27/17 07:06 07:10 07:12 Temperature Pulse Rate 98 H 63 66 Respiratory Rate Blood Pressure Blood Pressure [Left] O2 Sat by Pulse 89 96 93 Oximetry 07/27/17 07/27/17 07/27/17 07:15 07:20 07:25 Temperature Pulse Rate 62 93 H 73 Respiratory Rate Blood Pressure Blood Pressure [Left] O2 Sat by Pulse 95 95 93 Oximetry 07/27/17 07/27/17 07/27/17 07:26 07:31 07:34 Temperature Pulse Rate 76 95 H 82 Respiratory Rate Blood Pressure 127/56 Blood Pressure [Left] O2 Sat by Pulse 91 95 Oximetry 07/27/17 07/27/17 07/27/17 07:36 07:41 07:52 Temperature Pulse Rate 75 78 57 L Respiratory Rate Blood Pressure Blood Pressure [Left] O2 Sat by Pulse 95 96 97 Oximetry 07/27/17 07/27/17 07/27/17 07:55 07:57 08:00 Temperature 97.9 F Pulse Rate 73 62 70 Respiratory 18 Rate Blood Pressure 111/56 Blood Pressure 111/56 [Left] O2 Sat by Pulse 97 97 Oximetry 07/27/17 07/27/17 07/27/17 08:02 08:03 08:06 Temperature Pulse Rate 74 65 87 Respiratory Rate Blood Pressure 108/58 Blood Pressure [Left] O2 Sat by Pulse 97 93 Oximetry 07/27/17 07/27/17 07/27/17 08:07 08:12 08:23 Temperature Pulse Rate 79 60 Respiratory Rate Blood Pressure Blood Pressure [Left] O2 Sat by Pulse 96 98 88 Oximetry 07/27/17 07/27/17 07/27/17 08:24 08:29 08:33 Temperature Pulse Rate 83 93 H 68 Respiratory Rate Blood Pressure 106/55 Blood Pressure [Left] O2 Sat by Pulse 98 87 Oximetry 07/27/17 07/27/17 07/27/17 08:34 08:35 08:39 Temperature Pulse Rate 85 97 H 74 Respiratory Rate Blood Pressure Blood Pressure [Left] O2 Sat by Pulse 99 81 L 99 Oximetry 07/27/17 07/27/17 07/27/17 08:40 08:44 08:45 Temperature Pulse Rate 67 76 74 Respiratory Rate Blood Pressure 108/55 Blood Pressure [Left] O2 Sat by Pulse 97 81 L Oximetry 07/27/17 07/27/17 07/27/17 08:49 09:03 09:16 Temperature Pulse Rate 64 81 98 H Respiratory Rate Blood Pressure 110/61 Blood Pressure [Left] O2 Sat by Pulse 91 97 Oximetry 07/27/17 07/27/17 07/27/17 09:21 09:26 09:31 Temperature Pulse Rate 81 73 78 Respiratory Rate Blood Pressure Blood Pressure [Left] O2 Sat by Pulse 97 96 93 Oximetry 07/27/17 07/27/17 07/27/17 09:33 09:36 09:41 Temperature Pulse Rate 78 92 H 102 H Respiratory Rate Blood Pressure 105/57 Blood Pressure [Left] O2 Sat by Pulse 98 98 Oximetry 07/27/17 07/27/17 07/27/17 09:46 09:51 09:52 Temperature Pulse Rate 84 79 94 H Respiratory Rate Blood Pressure Blood Pressure [Left] O2 Sat by Pulse 97 95 92 Oximetry - Exam Cardiovascular: Regular rate, Normal S1 Lungs: Clear to auscultation, Normal air movement Abdomen: Present: normal appearance, soft, normal bowel sounds. Absent: distention Vulva: both: normal Uterus: Present: normal (gravid) FHR: category 1 Uterine Contraction Monitor Mode: External Cervical Dilatation: 7 (AROM; thick meconium) Cervical Effacement Percentage: 75 station: -2 Uterine Contraction Frequency (min): 3-4 Uterine Contraction Duration: 90-110 Uterine Contraction Pattern: Regular Uterine Tone Measurement Phase: Resting Uterine Contraction Intensity: Moderate Extremities: normal Deep Tendon Reflex Grade: Normal +2 - Labs Labs: Abnormal Labs 07/25/17 07/26/17 07/26/17 23:20 00:33 08:42 Seg Neutrophils % 71.2 H Magnesium 5.20 H Urine WBC (Auto) 8.0 H 07/26/17 07/27/17 19:26 03:53 Seg Neutrophils % Magnesium 5.60 H 3.70 H Urine WBC (Auto) Laboratory Results - last 24 hr 07/26/17 07/26/17 07/27/17 00:33 19:26 03:53 Magnesium 5.60 H 3.70 H RPR Nonreactive
[2017-07-27] MEDS: AMPICILLIN/NS 1 GM/50 ML 1 GM/50 ML BAG IV SCH (11:30)
[2017-07-27] MEDS ORDERED: PITOCin/NS 20 UNIT/1000ML DRIP 20 UNITS/1,000 ML BAG IV SCH (12:00)
[2017-07-27] MEDS ORDERED: PITOCin/NS 30 UNIT/500ML 30,000 MILLIUNITS/500 ML BAG IV ONE (12:02)
--- NOTE | 2017-07-27 12:06 | Event Note ---
Date: 07/27/17 Internal monitors (IUPC inserted in gentle fashion, no resistance. FSE placed without difficulty) placed d/t pt habitus and difficulty tracing FHT. FHTs 120s , moderate variability. SVE unchanged.
[2017-07-27] MEDS ORDERED: PHENERGAN PO PRN (12:52)
[2017-07-27] MEDS ORDERED: TUCKS PAD TP PRN (12:52)
[2017-07-27] MEDS ORDERED: ZOFRAN IV PRN (12:52)
[2017-07-27] MEDS ORDERED: TYLENOL PO PRN (12:52)
[2017-07-27] MEDS ORDERED: MILK OF MAGNESIA PO PRN (12:52)
[2017-07-27] MEDS ORDERED: BENADRYL PO PRN (12:52)
[2017-07-27] MEDS ORDERED: LANSINOH TP PRN (12:52)
[2017-07-27] MEDS ORDERED: DULCOLAX PR PRN (12:52)
[2017-07-27] MEDS ORDERED: SODIUM CHLORIDE FLUSH SYRINGE 10 ML IV NR (13:00)
--- NOTE | 2017-07-27 13:13 | Procedure Note ---
OB Delivery Note - Delivery Date of Delivery: 07/27/17 (12:33) Surgeon: NNEKA RIBERA (LEONARDO) Estimated blood loss: 100cc - Vaginal Delivery presentation: vertex Delivery position: OA Intrapartum events: meconium (Thick), extend. bradycardia, mult.variable deceleratio Delivery induction: none Delivery augmentation: rupture of membranes, pitocin Delivery monitor: internal FHT, internal uterine Route of delivery: Delivery placenta: spontaneous (12:40) Delivery cord: nuchal cord (X1 tight), 3 umbilical vessels Episiotomy: none Delivery laceration: none Anesthesia: epidural Delivery comments: Pt feeling pressure with epidural. Instructed to push.Complete 12:23. Deep variable decels with contractions followed by extended bradycardia. Dr. Atkins notified of bradycardia and requested to come for delivery. Ritgen maneuver assisted EMILY position viable make infant, Tight nuchal cord x1, delivered intact via somersault maneuver of non-vigorous male , cord clamped, cut and infant placed in pre-warmed RW for assessment by RT/NICU nurse present for thick Meconium stained fluid. Venous/Arterial cord gases collected and sent. Cord blood per protocol. Spontaneous vu delivery of intact, mec stained placenta at 12:40. 3VC. Placenta to pathology. FF@U-2, scant rubra lochia, no tears or lacerations. EBL 100cc. and mother left in stable condition in L&D. GBS prophylasis x2. Gases pending. - Infant A at 1 minute: 7 at 5 minutes: 9 Infant Gender: Female (3009grams, 6lbs-10oz, 19.5")
[2017-07-27] MEDS: NORCO 5/325 PO PRN ×2 (16:00→21:55)
[2017-07-27] MEDS: MOTRIN PO SCH (18:21)
[2017-07-28] MEDS: MOTRIN PO SCH ×5 (00:34→23:52)
[2017-07-28 00:54] LABS: Hematocrit 32.6 % (30.3-42.9); Hemoglobin 10.9 gm/dl (10.1-14.3)
[2017-07-28] MEDS: NORCO 5/325 PO PRN ×2 (08:57→23:51)
--- NOTE | 2017-07-28 09:39 | Progress Note ---
Assessment and Plan - Patient Problems (1) Status post normal vaginal delivery Current Visit: Yes Status: Acute Plan to address problem: PPD 1 - stable Continue routine PP orders Discharge to home 07/29/17 Follow up at [facility] in 2 weeks for control consult and in 6 weeks for exam Subjective - Subjective Date of service: 07/28/17 Principal diagnosis: S/P , PPD #1 Patient reports: appetite normal, voiding normally, pain well controlled, ambulating normally, no flatus, no bowel movement : doing well, bottle feeding Objective - Vital Signs Latest vital signs: Vital Signs Temp Pulse Resp BP BP Pulse Ox 07/28/17 08:57 20 07/28/17 07:37 98.1 F 69 18 110/57 97 07/28/17 04:00 98.7 F 69 16 94/78 07/28/17 00:00 98.7 F 69 16 114/78 07/27/17 21:55 18 07/27/17 20:00 98.6 F 65 16 137/83 07/27/17 15:00 98.2 F 64 22 101/53 07/27/17 12:49 18 07/27/17 09:52 94 H 92 07/27/17 09:51 79 95 07/27/17 09:46 84 97 07/27/17 09:41 102 H 98 Intake and Output 07/27/17 07/28/17 07/28/17 23:59 07:59 15:59 Other: Intake, Other Source Saline Solution # Voids Void 1 - Exam Abdomen: Present: normal appearance, soft Vulva: both: normal Uterus: Present: normal, firm, fundal height at umbilicus Extremities: Present: normal - Labs Labs: Abnormal lab results 07/27/17 07/27/17 Range/Units 12:57 13:02 POC ABG pH 7.274 L 7.041 L (7.35-7.45) POC ABG pCO2 83.1 H (35-45) POC ABG pO2 27 L < 5 L (80-105)
--- NOTE | 2017-07-28 09:40 | Discharge Summary ---
Providers - Providers Date of Admission: 07/26/17 00:08 Date of discharge: 07/29/17 Attending physician: GUME CATALAN MD 07/28/17 08:09 Consult to Case Management [CONS] Routine Services Needed at Discharge: Health It Specialist Notified:: Amie Phone number called:: [phone] Was contact made?: Yes If yes, spoke with:: [email or web address] Time called:: 08:11 Primary care physician: GUME CATALAN MD Hospitalization Reason for admission: IUP - , labor Delivery: Episiotomy: none Laceration: none Other procedures: none complications: none Discharge diagnosis: delivery baby: female Hospital course: Uncomplicated Condition at discharge: Stable Disposition: [id number] TO HOME OR SELFCARE - Discharge Diagnoses (1) Status post normal vaginal delivery Status: Acute Plan - Provider Discharge Summary Activity: routine, no sex for 6 weeks, no heavy lifting 4 weeks, no strenuous exercise Diet: routine Instructions: routine Additional instructions: [] Smoking cessation referral if applicable(refer to patient education folder for contact #) [] Refer to [facility] Booklet Call your doctor immediately for: * Fever > 100.5 * Heavy vaginal bleeding ( >1 pad per hour) * Severe persistent headache * Shortness of breath * Reddened, hot, painful area to leg or breast * Drainage or odor from incision. * Keep incision clean and dry at all times and follow doctor's instructions regarding bathing/showering - Follow up plan Follow up: GUME CATALAN MD [Primary Care Provider] - 14 Days (Follow up at [facility] OB/ [employer]PER[employer]/PA[employer] in 2 weeks for control consult and in 6 weeks for exam)
[2017-07-29] MEDS ORDERED: BOOSTRIX IM ONE (02:29)
[2017-07-29] MEDS: MOTRIN PO SCH (05:49)
[2017-07-29 17:35] VITALS: BP 113/75
== END 2017-07-29 13:20 | disposition home or self-care (01) | DRG 775 ==
LOC: TRG 20:30 → LD 07-26 00:08 → OB 07-27 15:00
PROVIDERS: ADMIT Obstetrics & Gynecology; ATTEND Obstetrics & Gynecology
PROC: 10E0XZZ Delivery of Products of Conception, External Approach (ICD-10-PCS; principal; 2017-07-27)
PROC: 10907ZC Drainage of Amniotic Fluid, Therapeutic from Products of Conception, Via Natural or Artificial Opening (ICD-10-PCS; 2017-07-27)
PROC: 10H07YZ Insertion of Other Device into Products of Conception, Via Natural or Artificial Opening (ICD-10-PCS; 2017-07-27)
PROC: 10H073Z Insertion of Monitoring Electrode into Products of Conception, Via Natural or Artificial Opening (ICD-10-PCS; 2017-07-27)
PROC: 3E0R3BZ Introduction of Anesthetic Agent into Spinal Canal, Percutaneous Approach (ICD-10-PCS; 2017-07-27)
PROC: 00HU33Z Insertion of Infusion Device into Spinal Canal, Percutaneous Approach (ICD-10-PCS; 2017-07-27)
DX: O60.14X0 Preterm labor third trimester with preterm delivery third trimester, not applicable or unspecified (principal); Z37.0 Single live birth; Z3A.35 35 weeks gestation of pregnancy; O77.0 Labor and delivery complicated by meconium in amniotic fluid; O76 Abnormality in fetal heart rate and rhythm complicating labor and delivery; O69.1XX0 Labor and delivery complicated by cord around neck, with compression, not applicable or unspecified
CPT/HCPCS: 36415; 76816; 76819; 80307; 81001; 82731; 82803; 83735; 85014; 85018; 85025; 86592; 86706; 86762; 86850; 86900; 86901; 87086; 87116; 87806; 88307; 90471; 90715; J0290; J0595; J0702; J2405; J2590; J3105; J3475; J7120